=== PATIENT | male | born 1995 | race Two or more races ===

== ENCOUNTER 2022-11-24 20:21 | Emergency (ER) | payer SELFPAY ==
[~2022-11-24] VITALS: Ht 160 cm; Wt 62.0 kg
[2022-11-24] MEDS ORDERED: ACETAMINOPHEN 500 MG TABLET PO ONE (22:30)
[2022-11-24] MEDS ORDERED: IBUPROFEN 600 MG TABLET PO ONE (22:30)
[2022-11-25] MEDS ORDERED: IBUP-1492 PO (00:49)
[2022-11-25 01:57] VITALS: BP 140/60
== END 2022-11-25 02:26 | disposition home or self-care (01) ==
LOC: EMS 20:23
DX: S50.12XA Contusion of left forearm, initial encounter (principal); Y09 Assault by unspecified means; Y93.89 Activity, other specified; Y92.89 Other specified places as the place of occurrence of the external cause; Y99.8 Other external cause status
CPT/HCPCS: 73552; 99284